=== PATIENT | male | born 1975 | race Caucasian/White ===

== ENCOUNTER 2019-08-10 12:50 | Inpatient (IN) | payer BC ==
[~2019-08-10] VITALS: Ht 185.4 cm; Wt 145.4 kg
[~2019-08-10 12:50] MED LIST: NO HOME MEDS
--- NOTE | 2019-08-10 13:29 | NUR ---
gave pt some water to obtain a ua, will continue to monitor, vs updated
[2019-08-10 13:31] LABS: BASOPHILS % (AUTO) 0.2 % (0-1); EOSINOPHILS # (AUTO) 0.5 X10'3 (0-0.9); EOSINOPHILS % (AUTO) 2.6 % (0-6); HEMATOCRIT 50.4 % (42.0-52.0); HEMOGLOBIN 16.5 g/dl (14.0-17.9); LYMPHOCYTES # (AUTO) 1.5 X10'3 (1.1-4.8); LYMPHOCYTES % (AUTO) 7.4 % (21-51); MEAN CORPUSCULAR HEMOGLOBIN 27.3 PG (27.0-31.0); MEAN CORPUSCULAR HGB CONC 32.7 g/dL (33.0-36.5); MEAN CORPUSCULAR VOLUME 83.5 FL (78-98); MEAN PLATELET VOLUME 7.9 FL (7.4-10.4); MONOCYTES # (AUTO) 1.2 X10'3 (0-0.9); MONOCYTES % (AUTO) 6.3 % (2-12); NEUTROPHILS # (AUTO) 16.6 X10'3 (1.8-7.7); NEUTROPHILS % (AUTO) 83.5 % (42-75); PLATELET COUNT 265 X10'3 (140-440); RED BLOOD COUNT 6.03 X10'6 (4.70-6.10); RED CELL DISTRIBUTION WIDTH 14.8 % (11.5-14.5); WHITE BLOOD COUNT 19.8 X10'3 (4.5-11.0)
[2019-08-10 13:39] LABS: ALANINE AMINOTRANSFERASE 51 U/L (12-78); ALBUMIN 3.4 G/DL (3.4-5.0); ALBUMIN/GLOBULIN RATIO 0.9 (1.1-1.5); ALKALINE PHOSPHATASE 65 IU/L (46-116); ANION GAP 7 (8-16); ASPARTATE AMINO TRANSFERASE 39 U/L (10-37); BILIRUBIN,TOTAL 0.5 MG/DL (0.1-1.0); BLOOD UREA NITROGEN 17 MG/DL (7-18); BUN/CREATININE RATIO 11.3 (5.4-32.0); CHLORIDE 104 MMOL/L (99-107); CREATININE 1.51 MG/DL (0.60-1.10); GLUCOSE 108 MG/DL (70-104); LIPASE 134 U/L (73-393); SODIUM 139 MMOL/L (135-145); TOTAL CARBON DIOXIDE 27.8 MMOL/L (24-32); TOTAL PROTEIN 7.1 G/DL (6.4-8.2); eGFR 50 ML/MIN
[2019-08-10 14:07] LABS: CLARITY,URINE CLEAR (Clear); COLOR,URINE YELLOW (Yellow); GLUCOSE, URINE >=1000 mg/dl (Neg); KETONES,URINE NEGATIVE (Neg); LEUKOCYTE ESTERASE ,URINE NEGATIVE (Neg); NITRITES, URINE NEGATIVE (Neg); OCCULT BLOOD,URINE TRACE-INTACT (Neg); PH,URINE 5.5 (4.8-8.0); PROTEIN,URINE NEGATIVE (Neg); UA COLLECTION TYPE VOIDED; UROBILINOGEN,URINE 0.2 E.U/dL (0.2-1.0)
[2019-08-10 14:11] LABS: BACTERIA,URINE NONE SEEN /HPF (Neg); MUCUS STRANDS FEW /LPF (Neg); RBC,URINE NONE SEEN /HPF (0-2); SQUAMOUS EPITHELIAL CELL,UR FEW /LPF (FEW); WBC,URINE 0-4 /HPF (0-4)
[2019-08-10] MEDS ORDERED: ketorolac tromethamine 15mg/ml inj. IM ONE (14:20)
[2019-08-10] MEDS ORDERED: iohexol 300mg/ml 100ml inj. ONE (14:31)
[2019-08-10] MEDS ORDERED: piperacillin/tazo 3.375gm/50ml 50 ML IV ONE (14:40)
[2019-08-10] MEDS ORDERED: metroNIDAZOLE-Flagyl 500mg/NS 100 ML IV ONE (14:40)
--- NOTE | 2019-08-10 15:27 | NUR ---
called cintron per order by gin ambrocio, no answer left message 15:27
[2019-08-10] MEDS ORDERED: ertapenem sod inj 1 GM in normal saline 100ml IV soln 100 ML IV STA (16:53)
[2019-08-10] MEDS ORDERED: morphine 2 MG/ML inj. syringe IV ONE (20:00)
[2019-08-10] MEDS ORDERED: ondansetron/PF 4mg/2ml inj IV PRN (20:55)
[2019-08-10] MEDS ORDERED: mag hydrox/Alum hydrox/simeth 30ml oral suspension PO PRN (20:55)
[2019-08-10] MEDS ORDERED: potassium CL 10mEq/100ml bag 100 ML IV PRN ×2 (20:55)
[2019-08-10] MEDS ORDERED: magnesium hydroxide 30ml (MOM) UD suspension PO PRN (20:55)
[2019-08-10] MEDS ORDERED: acetaminophen 325mg tablet PO PRN (20:55)
[2019-08-10] MEDS ORDERED: morphine 2 MG/ML inj. syringe IV PRN ×2 (20:55)
[2019-08-10] MEDS: normal saline 1000ml 1,000 ML IV SCH (21:24)
[2019-08-10 22:00] VITALS: BP 125/77
[2019-08-10] MEDS: metroNIDAZOLE-Flagyl 500mg/NS 100 ML IV SCH (23:52)
[2019-08-11] MEDS ORDERED: piperacillin/tazo 3.375gm/50ml 50 ML IV SCH
[2019-08-11] MEDS: piperacillin/tazo 3.375gm/50ml 50 ML IV SCH ×3 (00:53→16:00)
--- NOTE | 2019-08-11 06:22 | NUR ---
Problems reprioritized. Patient report given, questions answered & plan of care reviewed with MERCEDES CORONA.
[2019-08-11 07:00] VITALS: BP 107/58
[2019-08-11] MEDS: heparin, porcine 5000 units/ml vial SQ SCH ×2 (08:00→20:00)
[2019-08-11] MEDS: K and/or MAG REPLACEMENT MC SCH ×2 (08:00→20:00)
[2019-08-11 08:47] LABS: BASOPHILS % (AUTO) 0.3 % (0-1); EOSINOPHILS # (AUTO) 0.5 X10'3 (0-0.9); EOSINOPHILS % (AUTO) 3.7 % (0-6); HEMATOCRIT 45.7 % (42.0-52.0); HEMOGLOBIN 14.9 g/dl (14.0-17.9); LYMPHOCYTES # (AUTO) 1.2 X10'3 (1.1-4.8); LYMPHOCYTES % (AUTO) 8.6 % (21-51); MEAN CORPUSCULAR HEMOGLOBIN 27.3 PG (27.0-31.0); MEAN CORPUSCULAR HGB CONC 32.6 g/dL (33.0-36.5); MEAN CORPUSCULAR VOLUME 83.8 FL (78-98); MEAN PLATELET VOLUME 8.4 FL (7.4-10.4); MONOCYTES % (AUTO) 6.9 % (2-12); NEUTROPHILS # (AUTO) 11.5 X10'3 (1.8-7.7); NEUTROPHILS % (AUTO) 80.5 % (42-75); PLATELET COUNT 235 X10'3 (140-440); RED BLOOD COUNT 5.45 X10'6 (4.70-6.10); RED CELL DISTRIBUTION WIDTH 14.6 % (11.5-14.5); WHITE BLOOD COUNT 14.3 X10'3 (4.5-11.0)
[2019-08-11 08:55] LABS: ALANINE AMINOTRANSFERASE 48 U/L (12-78); ALBUMIN 2.9 G/DL (3.4-5.0); ALBUMIN/GLOBULIN RATIO 0.9 (1.1-1.5); ALKALINE PHOSPHATASE 63 IU/L (46-116); ANION GAP 8 (8-16); ASPARTATE AMINO TRANSFERASE 33 U/L (10-37); BILIRUBIN,TOTAL 0.9 MG/DL (0.1-1.0); BLOOD UREA NITROGEN 13 MG/DL (7-18); BUN/CREATININE RATIO 9.7 (5.4-32.0); CALCIUM 7.8 MG/DL (8.5-10.1); CHLORIDE 105 MMOL/L (99-107); CREATININE 1.34 MG/DL (0.60-1.10); GLUCOSE 82 MG/DL (70-104); SODIUM 139 MMOL/L (135-145); TOTAL CARBON DIOXIDE 26.1 MMOL/L (24-32); TOTAL PROTEIN 6.3 G/DL (6.4-8.2); eGFR 58 ML/MIN
[2019-08-11] MEDS: metroNIDAZOLE-Flagyl 500mg/NS 100 ML IV SCH ×3 (10:28→23:28)
[2019-08-11] MEDS: normal saline 1000ml 1,000 ML IV SCH ×2 (10:31→18:35)
[2019-08-11 11:00] VITALS: BP 137/84
--- NOTE | 2019-08-11 18:31 | NUR ---
Problems reprioritized. Patient report given, questions answered & plan of care reviewed with CABRERA RN.
--- NOTE | 2019-08-11 18:43 | NUR ---
DID NOT GIVEN 1600 DOSE OF ZOSYN, LAST DOSE ENDED AT 1500, NEXT DOSE DUE AT MIDNIGHT. SOME HOW MED WAS INTERRUPTED
--- NOTE | 2019-08-11 19:45 | NUR ---
Dr Hein informed of attempt to reach Dr Islas of positive blood cultures at 1845; informed of pt's current ABX's; & a decrease WBC of 14.3, down from 19.8 yesterday; pt afebrile; no orders at this time Addendum: 08/12/19 at 0147 by Lynn Dougherty RN Amended: Links added.
[2019-08-11 20:00] VITALS: BP 155/85
[2019-08-12] VITALS: BP 115/58
[2019-08-12] MEDS: piperacillin/tazo 3.375gm/50ml 50 ML IV SCH ×2 (00:33→08:25)
[2019-08-12] MEDS: normal saline 1000ml 1,000 ML IV SCH (02:52)
[2019-08-12 05:58] LABS: BASOPHILS # (AUTO) 0.1 X10'3 (0-0.2); BASOPHILS % (AUTO) 0.5 % (0-1); EOSINOPHILS # (AUTO) 0.7 X10'3 (0-0.9); EOSINOPHILS % (AUTO) 5.6 % (0-6); HEMATOCRIT 43.3 % (42.0-52.0); HEMOGLOBIN 13.9 g/dl (14.0-17.9); LYMPHOCYTES # (AUTO) 1.4 X10'3 (1.1-4.8); LYMPHOCYTES % (AUTO) 11.8 % (21-51); MEAN CORPUSCULAR HEMOGLOBIN 27.1 PG (27.0-31.0); MEAN CORPUSCULAR HGB CONC 32.1 g/dL (33.0-36.5); MEAN CORPUSCULAR VOLUME 84.4 FL (78-98); MEAN PLATELET VOLUME 8.2 FL (7.4-10.4); MONOCYTES # (AUTO) 0.9 X10'3 (0-0.9); NEUTROPHILS # (AUTO) 8.7 X10'3 (1.8-7.7); NEUTROPHILS % (AUTO) 74.1 % (42-75); PLATELET COUNT 240 X10'3 (140-440); RED BLOOD COUNT 5.13 X10'6 (4.70-6.10); RED CELL DISTRIBUTION WIDTH 14.6 % (11.5-14.5); WHITE BLOOD COUNT 11.8 X10'3 (4.5-11.0)
[2019-08-12 06:07] LABS: ALANINE AMINOTRANSFERASE 34 U/L (12-78); ALBUMIN 2.6 G/DL (3.4-5.0); ALBUMIN/GLOBULIN RATIO 0.8 (1.1-1.5); ALKALINE PHOSPHATASE 55 IU/L (46-116); ANION GAP 5 (8-16); ASPARTATE AMINO TRANSFERASE 19 U/L (10-37); BILIRUBIN,TOTAL 0.3 MG/DL (0.1-1.0); BLOOD UREA NITROGEN 10 MG/DL (7-18); BUN/CREATININE RATIO 7.5 (5.4-32.0); CALCIUM 7.6 MG/DL (8.5-10.1); CHLORIDE 107 MMOL/L (99-107); CREATININE 1.34 MG/DL (0.60-1.10); GLUCOSE 97 MG/DL (70-104); POTASSIUM 4.1 MMOL/L (3.5-5.1); SODIUM 139 MMOL/L (135-145); TOTAL CARBON DIOXIDE 27.4 MMOL/L (24-32); eGFR 58 ML/MIN
--- NOTE | 2019-08-12 07:11 | NUR ---
Patient in room [facility]. I have received report from CJ REES and had the opportunity to ask questions and assume patient care.
[2019-08-12] MEDS: K and/or MAG REPLACEMENT MC SCH ×2 (07:23→19:51)
[2019-08-12 08:00] VITALS: BP 149/83
[2019-08-12] MEDS: heparin, porcine 5000 units/ml vial SQ SCH ×2 (08:00→19:46)
[2019-08-12] MEDS: metroNIDAZOLE-Flagyl 500mg/NS 100 ML IV SCH (08:26)
[2019-08-12] MEDS ORDERED: METR500T PO (09:07)
[2019-08-12] MEDS ORDERED: LEVO500T2 PO (09:07)
[2019-08-12 11:00] VITALS: BP 158/75
[2019-08-12] MEDS ORDERED: levoFLOXACIN 750MG TABLET PO SCH (11:00)
--- NOTE | 2019-08-12 11:48 | NUR ---
Page Sent PAGER ID: [phone] MESSAGE: JULIA [id number]: YURI IVORYA...PER LAB, BLOOD CULTURE IS SHOWING GRAM POSITIVE COCCI IN CLUSTERS, WILL BE FINALIZED TOMORROW EVENING
[2019-08-12] MEDS ORDERED: HYDROmorphone 1 mg/ml syringe IV PRN (17:50)
--- NOTE | 2019-08-12 18:30 | NUR ---
Patient in room [facility]. I have received report from Meron CORONA and had the opportunity to ask questions and assume patient care.
--- NOTE | 2019-08-12 18:39 | NUR ---
Problems reprioritized. Patient report given, questions answered & plan of care reviewed with CJ GÓMEZ.
[2019-08-12] MEDS: metroNIDAZOLE 500mg tablet PO SCH (19:34)
[2019-08-12 20:00] VITALS: BP 149/89
[2019-08-13] VITALS: BP 174/89
[2019-08-13 03:55] VITALS: BP 141/70
--- NOTE | 2019-08-13 04:14 | NUR ---
Patient had an elevated blood pressure when taken at midnight. Patient states " I have been on the phone for an hour arguing with my girlfriend that I haven't seen in 3 days." Explained that he would probably require medication, to whICh he stated "NO, I will not take it. JUst come back later and take it again when I have calmed down. BP did come down to 174/89 from 182/111 and later to 149/70. Will inform dayshift of BP elevating up when upset.
[2019-08-13 06:19] LABS: BASOPHILS # (AUTO) 0.1 X10'3 (0-0.2); BASOPHILS % (AUTO) 0.6 % (0-1); EOSINOPHILS # (AUTO) 0.4 X10'3 (0-0.9); EOSINOPHILS % (AUTO) 4.3 % (0-6); HEMATOCRIT 45.7 % (42.0-52.0); HEMOGLOBIN 14.9 g/dl (14.0-17.9); LYMPHOCYTES # (AUTO) 1.4 X10'3 (1.1-4.8); LYMPHOCYTES % (AUTO) 14.9 % (21-51); MEAN CORPUSCULAR HEMOGLOBIN 27.6 PG (27.0-31.0); MEAN CORPUSCULAR HGB CONC 32.6 g/dL (33.0-36.5); MEAN CORPUSCULAR VOLUME 84.7 FL (78-98); MEAN PLATELET VOLUME 8.3 FL (7.4-10.4); MONOCYTES # (AUTO) 0.7 X10'3 (0-0.9); MONOCYTES % (AUTO) 7.2 % (2-12); PLATELET COUNT 264 X10'3 (140-440); RED BLOOD COUNT 5.39 X10'6 (4.70-6.10); RED CELL DISTRIBUTION WIDTH 14.7 % (11.5-14.5); WHITE BLOOD COUNT 9.6 X10'3 (4.5-11.0)
--- NOTE | 2019-08-13 06:30 | NUR ---
Patient in room [facility]. I have received report from Jocelyne CORONA and had the opportunity to ask questions and assume patient care.
[2019-08-13 06:37] LABS: ALANINE AMINOTRANSFERASE 29 U/L (12-78); ALBUMIN 2.7 G/DL (3.4-5.0); ALBUMIN/GLOBULIN RATIO 0.7 (1.1-1.5); ALKALINE PHOSPHATASE 51 IU/L (46-116); ANION GAP 8 (8-16); ASPARTATE AMINO TRANSFERASE 18 U/L (10-37); BILIRUBIN,TOTAL 0.3 MG/DL (0.1-1.0); BLOOD UREA NITROGEN 9 MG/DL (7-18); BUN/CREATININE RATIO 6.8 (5.4-32.0); CHLORIDE 107 MMOL/L (99-107); CREATININE 1.33 MG/DL (0.60-1.10); GLUCOSE 86 MG/DL (70-104); POTASSIUM 4.7 MMOL/L (3.5-5.1); SODIUM 140 MMOL/L (135-145); TOTAL CARBON DIOXIDE 25.1 MMOL/L (24-32); TOTAL PROTEIN 6.4 G/DL (6.4-8.2); eGFR 58 ML/MIN
[2019-08-13 08:00] VITALS: BP_SYST 143; BP_SYST 148; BP_DIAS 84; BP_DIAS 88
[2019-08-13] MEDS: heparin, porcine 5000 units/ml vial SQ SCH (08:00)
[2019-08-13] MEDS: K and/or MAG REPLACEMENT MC SCH (08:00)
[2019-08-13] MEDS: metroNIDAZOLE 500mg tablet PO SCH (08:34)
--- NOTE | 2019-08-13 12:00 | NUR ---
Patient discharged today, patient education was done verbally with patient. Patient expressed verbal understanding of new medications and how to take them. Patient also understands the dietary changes as well. Patient was informed that he is to aquire a primary MD and follow up, as well as have a colonoscopy in the next two month. Patient IV taken out by joselito lentz was whole and intact upon discharge. Patient left with all belongings and was walked to the lobby.
--- NOTE | 2019-08-13 14:58 | NUR ---
Student Medication Administration: For this medication-pass time frame, all medication were reviewed, dispensed, administered and documented per hospital policy by Lillian nursing officer.
--- NOTE | 2019-08-13 14:58 | NUR ---
Student documentation: I have reviewed and agree with all interventions, assessments performed and documented by Lillian, nursing clerk.
== END 2019-08-13 11:06 | disposition home or self-care (01) | DRG 392 ==
LOC: ER 12:51 → ED HOLD 20:52 → SUR 3N 22:14
PROVIDERS: ADMIT Internal Medicine; ATTEND Internal Medicine
PROC: BW211ZZ Computerized Tomography (CT Scan) of Abdomen and Pelvis using Low Osmolar Contrast (ICD-10-PCS; principal; 2019-08-10)
DX: K57.20 Diverticulitis of large intestine with perforation and abscess without bleeding (principal); N17.9 Acute kidney failure, unspecified; F12.90 Cannabis use, unspecified, uncomplicated; Z53.20 Procedure and treatment not carried out because of patient's decision for unspecified reasons; I25.2 Old myocardial infarction; Z87.891 Personal history of nicotine dependence; Z88.1 Allergy status to other antibiotic agents
CPT/HCPCS: 36415; 74177; 80053; 81001; 83605; 83690; 84145; 85025; 87040; 87077; 87081; 87186; 96365; 96375; 99285; G0378; J1170; J1335; J1885; J2270; J2543; J3490; J7030; Q9967